=== PATIENT | female | born 1975 | race Caucasian/White ===

== ENCOUNTER 2016-06-14 12:54 | Emergency (ER) | payer OTHER ==
[2016-06-14 13:01] VITALS: BP 119/79; PULSE 67; TEMP 98.7; BMI 29.2
--- NOTE | 2016-06-14 13:30 | PDOC ---
History of Present Illness - General Chief Complaint: Headache Stated Complaint: DIZZINESS, SOB, HIGH BP Time Seen by Provider: 06/14/16 13:05 History Source: Patient - History of Present Illness Timing/Duration: other Associated Symptoms: reports: headaches, shortness of breath. denies: chest pain, cough, fever/chills, malaise, nausea/vomiting Past History - Past Medical History Allergies/Adverse Reactions: Allergies Allergy/AdvReac Type Severity Reaction Status Date / Time ciprofloxacin [From Cipro] Allergy Severe Hives Verified 06/14/16 13:01 ciprofloxacin HCl Allergy Severe Hives Verified 06/14/16 13:01 [From Cipro] coconut oil AdvReac Mild Itching Verified 06/14/16 13:01 kiwi AdvReac Mild Itching Verified 06/14/16 13:01 Home Medications: Ambulatory Orders Omeprazole [Prilosec (RX)] 20 mg PO DAILY 06/30/14 Albuterol Sulfate Inhaler - [Ventolin HFA Inhaler -] 1 - 2 inh PO Q4H #1 inhaler 11/22/15 Meclizine HCl 25 mg PO Q6H PRN #20 tablet 12/14/15 Asthma: No Cancer: No Cardiac Disorders: No Diabetes: No GI Disorders: Yes (GERD) HTN: Yes (PRECLAMPSIA) Suicide Attempt (Hx): No Seizures: No Thyroid Disease: No - Reproductive History (#): 5 Para: 2 Spontaneous : 2 - Immunization History Immunization Up to Date: Yes - Psycho/Social/Smoking Cessation Hx Anxiety: No Suicidal Ideation: No Smoking Status: No Smoking History: Current some day smoker Have you smoked in the past 12 months: No Number of Cigarettes Smoked Daily: 4 Information on smoking cessation initiated: No 'Breaking Loose' booklet given: 11/22/15 Hx Alcohol Use: No Drug/Substance Use Hx: No Substance Use Type: None Hx Substance Use Treatment: No Review of Systems - Review of Systems Constitutional: No: Fever HEENTM: No: Blurred Vision Respiratory: Yes: Shortness of Breath. No: Cough, Wheezing Cardiac (ROS): No: Chest Pain ABD/GI: No: Diarrhea, Nausea, Vomiting Neurological: Yes: Headache. No: Dizziness *Physical Exam - Vital Signs Last Vital Signs Temp Pulse Resp BP Pulse Ox 98.7 F 67 20 119/79 99 06/14/16 12:59 06/14/16 12:59 06/14/16 12:59 06/14/16 12:59 06/14/16 12:59 - Physical Exam Comments: 06/14/16 13:31 Pt well appearing, currently sitting in chair in room General Appearance: Yes: Appropriately Dressed. No: Apparent Distress HEENT: positive: Normal Voice Respiratory/Chest: positive: Lungs Clear, Normal Breath Sounds. negative: Respiratory Distress Cardiovascular: positive: Regular Rate, S1, S2 Gastrointestinal/Abdominal: positive: Soft. negative: Tender Integumentary: positive: Dry, Warm Neurologic: positive: Fully Oriented, Alert, Normal Mood/Affect, Motor Strength 08/25 ED Treatment Course - LABORATORY CBC & Chemistry Diagram: 06/14/16 13:50 06/14/16 13:18 - RADIOLOGY Radiology Studies Ordered: Category Date Time Status CHEST PA & LAT [RAD] Stat Radiology 06/14/16 13:18 Ordered Medical Decision Making - Medical Decision Making 06/14/16 13:24 41 yo F, h/o GERD, HTN in only, p/w a constellation of symptoms. Pt c/ o dizziness, LOW and sob x 3 days. States dizziness intermittent and has since resolved. No vertigo, visual changes or focal weakness. C/o vague frontal LOW that mostly comes and goes, achy, 3-4/10 and has since improved. States sometimes she feels sob but not currently. No CP, diaphoresis, n/v, palpitations , leg pain or swelling. Took her BP at home yesterday and states it was 140/90 and that she took "a water pill" she had at home. Pt states she saw PMD 1 month ago for well check and that labs were negative. No RFs for DVT/PE. On chart review, pt has been seen in ED in the past for numerous complaints including dizziness, usually discharged from ED. Pt well appearing on exam w/ stable vitals and unremarkable exam. Will check basic labs. Anticipate discharge w/ PMD f/u 06/14/16 14:55 Work up negative in ED. Pt remains well kayleigh and stable in ED. Will dc w/ PMD f/ u *DC/Admit/Observation/Transfer Diagnosis at time of Disposition: Dizziness Headache Qualifiers: Headache type: unspecified Headache chronicity pattern: episodic headache Intractability: not intractable Qualified Code(s): R51 - Headache - Discharge Dispostion Disposition: HOME Condition at time of disposition: Stable - Referrals Referrals: Josie Bazan MD [Primary Care Provider] - - Patient Instructions Additional Instructions: Your exam and labs were normal in ED. Please follow up with your PMD
[2016-06-14 13:56] LABS: BASOPHIL 0.6 % (0-2.0); EOSINOPHIL 0.9 % (0-4.5); MCH 29.9 pg (25.7-33.7); MCHC 33.3 g/dl (32.0-36.0); MEAN CELL VOLUME 89.8 fl (80-96); MEAN PLT VOLUME 8.8 fl (7.5-11.1); NEUTROPHILS 64.9 % (42.8-82.8); PLATELET COUNT 255 K/MM3 (134-434); RDW 13.3 % (11.6-15.6); WHITE BLOOD COUNT 7.4 K/mm3 (4.0-10.0)
[2016-06-14 13:59] LABS: URINE APPEARANCE CLEAR; URINE BILIRUBIN NEGATIVE (NEGATIVE); URINE COLOR COLORLESS; URINE GLUCOSE (UA) NEGATIVE (NEGATIVE); URINE KETONE NEGATIVE (NEGATIVE); URINE LEUK ESTERASE NEGATIVE (NEGATIVE); URINE NITRITE NEGATIVE (NEGATIVE); URINE PROTEIN NEGATIVE (NEGATIVE); URINE UROBILINOGEN NEGATIVE E.U./dl (0.2-1.0)
[2016-06-14 14:15] LABS: URINE BLOOD 3+ (NEGATIVE)
[2016-06-14 14:16] LABS: URINE MUCUS RARE; URINE RBC 4 /hpf (0-3); URINE WBC <1 /hpf (3-5)
[2016-06-14 14:34] LABS: ALBUMIN 4.2 g/dl (3.4-5.0); ANION GAP 7 (8-16); CALCIUM 9.3 mg/dL (8.5-10.1); CO2 30 mmol/L (21-32); CREATININE 0.7 mg/dL (0.55-1.02); GLUCOSE,RANDOM 80 mg/dL (74-106); SGOT/AST 15 U/L (15-37); SGPT/ALT 24 U/L (12-78)
[2016-06-14 14:36] LABS: ALK PHOS 76 U/L (45-117); BILIRUBIN,TOTAL 0.3 mg/dL (0.2-1.0); TOT PROT 7.3 g/dl (6.4-8.2)
== END 2016-06-14 14:59 | disposition home or self-care (01) ==
LOC: JERFT 12:54
DX: R51 Headache (principal); I15.8 Other secondary hypertension; K21.9 Gastro-esophageal reflux disease without esophagitis
CPT/HCPCS: 36415; 71020-TC; 80053; 81003; 81015; 84703; 85025; 99281-25

== ENCOUNTER 2017-05-01 20:37 | Emergency (ER) | payer OTHER ==
[2017-05-01] MEDS ORDERED: ASPIRIN 81 MG CHEWABLE TABLETS PO ONE (20:41)
[2017-05-01 20:44] VITALS: BP 144/99; PULSE 84; TEMP 98.5; BMI 26.7
--- NOTE | 2017-05-01 20:45 | PDOC ---
Rapid Medical Evaluation Chief Complaint: Chest Pain Time Seen by Provider: 05/01/17 20:39 Medical Evaluation: Allergies Allergy/AdvReac Type Severity Reaction Status Date / Time ciprofloxacin [From Cipro] Allergy Severe Hives Verified 06/14/16 13:01 ciprofloxacin HCl Allergy Severe Hives Verified 06/14/16 13:01 [From Cipro] coconut oil AdvReac Mild Itching Verified 06/14/16 13:01 kiwi AdvReac Mild Itching Verified 06/14/16 13:01 05/01/17 20:40 CC: c/o chest pain, dizziness and throat pain. currently on Augmentin for strep throat. PE: patient alert ox3. Plan: cbc, cmp, EKG, cardiac enzymes, chest xray, UA, urine patient to the ED for further management of care/ Discharge Disposition - Referrals Referrals: Josie Bazan MD [Primary Care Provider] - - Patient Instructions - Post Discharge Activity
[2017-05-01 21:21] LABS: BASO % 0.5 % (0-2.0); EOS % 1.6 % (0-4.5); HEMATOCRIT 37.4 % (32.4-45.2); HEMOGLOBIN 12.7 GM/dL (10.7-15.3); LYMPH % 34.6 % (8-40); MCH 30.4 pg (25.7-33.7); MEAN CELL VOLUME 89.3 fl (80-96); MEAN PLT VOLUME 8.8 fl (7.5-11.1); MONO % 6.7 % (3.8-10.2); NEUT % 56.6 % (42.8-82.8); PLATELET COUNT 236 K/MM3 (134-434); RBC 4.19 M/mm3 (3.60-5.2); RDW 12.8 % (11.6-15.6); WHITE BLOOD COUNT 6.4 K/mm3 (4.0-10.0)
[2017-05-01 21:22] LABS: HCG,QUALITATIVE URINE NEGATIVE
[2017-05-01 21:37] LABS: INR 1.04 (0.82-1.09); PROTHROMBIN TIME (PATIENT) 11.8 SEC (9.98-11.88)
[2017-05-01 21:46] LABS: ALBUMIN 3.9 g/dl (3.4-5.0); ANION GAP 7 (8-16); BILIRUBIN,TOTAL 0.3 mg/dL (0.2-1.0); BLOOD UREA NITROGEN 9 mg/dL (7-18); CALCIUM 8.3 mg/dL (8.5-10.1); CHLORIDE 108 mmol/L (98-107); CO2 26 mmol/L (21-32); CREATININE 0.6 mg/dL (0.55-1.02); GLUCOSE,RANDOM 115 mg/dL (74-106); POTASSIUM 3.6 mmol/L (3.5-5.1); SGOT/AST 13 U/L (15-37); SGPT/ALT 24 U/L (12-78); SODIUM 141 mmol/L (136-145)
[2017-05-01 21:49] LABS: ALK PHOS 69 U/L (45-117)
[2017-05-01 23:44] LABS: URINE APPEARANCE CLEAR; URINE BILIRUBIN NEGATIVE (NEGATIVE); URINE BLOOD 1+ (NEGATIVE); URINE COLOR COLORLESS; URINE GLUCOSE (UA) NEGATIVE (NEGATIVE); URINE KETONE NEGATIVE (NEGATIVE); URINE LEUK ESTERASE NEGATIVE (NEGATIVE); URINE NITRITE NEGATIVE (NEGATIVE); URINE PROTEIN NEGATIVE (NEGATIVE); URINE UROBILINOGEN NEGATIVE mg/dL (0.2-1.0)
[2017-05-01 23:46] LABS: EPI CELLS RARE /HPF (FEW); URINE BACTERIA RARE /hpf (NONE SEEN)
--- NOTE | 2017-05-02 00:43 | PDOC ---
History of Present Illness - General Chief Complaint: Chest Pain Stated Complaint: PAIN Time Seen by Provider: 05/01/17 20:39 History Source: Patient - History of Present Illness Initial Comments: 05/02/17 01:01 42 year old female c/o epigastric pain / chest pain since this afternoon. patient is currently on augmentin for Group A strep pharyngitis. patient is report throat pain, nausea and diarrhea. denies fever/ chills, cough, nasal congestion, vomiting, abdominal pain. denies OCP use, prolonged sitting, recent travel . PMHX: GERD 05/02/17 01:04 Past History - Past Medical History Allergies/Adverse Reactions: Allergies Allergy/AdvReac Type Severity Reaction Status Date / Time ciprofloxacin [From Cipro] Allergy Severe Hives Verified 05/02/17 00:57 ciprofloxacin HCl Allergy Severe Hives Verified 05/02/17 00:57 [From Cipro] coconut oil AdvReac Mild Itching Verified 05/02/17 00:57 kiwi AdvReac Mild Itching Verified 05/02/17 00:57 Home Medications: Ambulatory Orders Omeprazole [Prilosec (RX)] 20 mg PO DAILY 06/30/14 Mag Hydrox/Al Hydrox/Simeth [Mylanta Suspension -] 30 ml PO Q6H PRN #1 bottle Asthma: No Cancer: No Cardiac Disorders: No COPD: No Diabetes: No GI Disorders: Yes (GERD) HTN: Yes (PRECLAMPSIA) Seizures: No Thyroid Disease: No - Reproductive History (#): 5 Para: 2 Spontaneous : 2 - Immunization History Immunization Up to Date: Yes - Suicide/Smoking/Psychosocial Hx Smoking Status: No Smoking History: Current every day smoker Have you smoked in the past 12 months: Yes Number of Cigarettes Smoked Daily: 5 Information on smoking cessation initiated: No 'Breaking Loose' booklet given: 11/22/15 Hx Alcohol Use: No Drug/Substance Use Hx: No Substance Use Type: None Hx Substance Use Treatment: No Review of Systems - Review of Systems Able to Perform ROS?: Yes Is the patient limited Setswana proficient: No Constitutional: No: Symptoms Reported, See HPI, Chills, Diaphoresis, Fever, Loss of Appetite, Malaise, Night Sweats, Weakness, Weight Stable, Unintentional Wgt. Loss, Unexplained wgt Loss, Other HEENTM: Yes: Throat Pain Cardiac (ROS): Yes: Chest Pain. No: Symptoms Reported, See HPI, Edema, Irregular Heart Rate, Lightheadedness, Palpitations, Syncope, Chest Tightness, Other ABD/GI: Yes: Diarrhea, Nausea, Abdominal cramping (epigastric area). No: Symptoms Reported, See HPI, Abdominal Distended, Abd. Pain w/ defecation, Blood Streaked Bowels, Constipated, Difficulty Swallowing, Poor Appetite, Poor Fluid Intake, Rectal Bleeding, Vomiting, Indigestion, Tarry Stools, Other : No: Symptoms Reported, See HPI, Burning, Dysuria, Discharge, Frequency, Flank Pain, Hematuria, Incontinence, Pain, Urgency, Testicular Mass, Testicular Swelling, Lesions, Testicular Pain, Other Musculoskeletal: No: Symptoms Reported, See HPI, Back Pain, Gout, Joint Pain, Joint Swelling, Muscle Pain, Muscle Weakness, Neck Pain, Joint Stiffness, Other Integumentary: No: Symptoms Reported, See HPI, Bruising, Change in Color, Change in Hair/Nails, Dryness, Erythema, Flushing, Lesions, Lumps, Pallor, Pruritus, Rash, Sweating, Other *Physical Exam - Vital Signs Last Vital Signs Temp Pulse Resp BP Pulse Ox 98.5 F 84 18 144/99 98 05/01/17 20:41 05/01/17 20:41 05/01/17 20:41 05/01/17 20:41 05/01/17 20:41 - Physical Exam General Appearance: Yes: Appropriately Dressed Respiratory/Chest: positive: Lungs Clear, Normal Breath Sounds Heart Score/ECG Review - ECG Intrepretation Rhythm: Regular Rhythm Comment:: 05/02/17 01:08 NSR: 78bpm ED Treatment Course - LABORATORY CBC & Chemistry Diagram: 05/01/17 20:55 05/01/17 20:55 - ADDITIONAL ORDERS Additional order review: Laboratory Results 05/01/17 05/01/17 05/01/17 20:55 20:55 20:55 PT with INR 11.80 INR 1.04 Sodium 141 Potassium 3.6 D Chloride 108 H Carbon Dioxide 26 Anion Gap 7 L BUN 9 Creatinine 0.6 Creat Clearance w eGFR > 60 Random Glucose 115 H Calcium 8.3 L Magnesium 2.0 D Total Bilirubin 0.3 AST 13 L ALT 24 Alkaline Phosphatase 69 Creatine Kinase 83 Troponin I < 0.02 Total Protein 7.0 Albumin 3.9 Urine Color Colorless Urine Appearance Clear Urine pH 7.0 D Ur Specific [place] 1.002 Urine Protein Negative Urine Glucose (UA) Negative Urine Ketones Negative Urine Blood 1+ H Urine Nitrite Negative Urine Bilirubin Negative Urine Urobilinogen Negative Ur Leukocyte Esterase Negative Urine WBC (Auto) <1 Urine RBC (Auto) <1 Ur Epithelial Cells Rare Urine Bacteria Rare Urine HCG, Qual Negative 05/01/17 20:44 Group A Strep Rapid Antigen - Final Throat 05/01/17 20:55 RBC 4.19 MCV 89.3 MCHC 34.0 RDW 12.8 MPV 8.8 Neutrophils % 56.6 Lymphocytes % 34.6 D Monocytes % 6.7 Eosinophils % 1.6 Basophils % 0.5 - RADIOLOGY Radiology Studies Ordered: Category Date Time Status CHEST PA & LAT [RAD] Stat Radiology 05/02/17 00:08 Taken Progress Note - Progress Note Progress Note: A: Chest pain P; cbc cmp ekg cardiac chest xray rapid strep negative *DC/Admit/Observation/Transfer Diagnosis at time of Disposition: GERD (gastroesophageal reflux disease) Qualifiers: Esophagitis presence: without esophagitis Qualified Code(s): K21.9 - Gastro- esophageal reflux disease without esophagitis Chest pain Qualifiers: Chest pain type: other chest pain Qualified Code(s): R07.89 - Other chest pain ; R07.8 - Other chest pain - Prescriptions Prescriptions: Mag Hydrox/Al Hydrox/Simeth [Mylanta Suspension -] 30 ml PO Q6H PRN #1 bottle PRN Reason: Dyspepsia - Referrals Referrals: Josie Bazan MD [Primary Care Provider] - - Patient Instructions Printed Discharge Instructions: DI for Chest Pain Additional Instructions: continue Augmentin. take MAALox every 6 hours as needed for acid reflux. follow up with your doctor as soon as possible. return to the ED is symptoms worsened. - Post Discharge Activity
[2017-05-02] MEDS ORDERED: MAG HYDROX/AL HYDROX/SIMETH 30 ML UNIT-DOSE CUP PO ONE (01:00)
[2017-05-02] MEDS ORDERED: ACETAMINOPHEN 325 MG TABLET (FP) PO ONE (01:01)
[2017-05-02] MEDS ORDERED: ACETAMINOPHEN 325 MG TABLET (FP) ONE (01:06)
[2017-05-02] MEDS ORDERED: MAG HYDROX/AL HYDROX/SIMETH 30 ML UNIT-DOSE CUP ONE (01:06)
--- NOTE | 2017-05-02 09:20 | EKG ---
Test Reason : Blood Pressure : / mmHG Vent. Rate : 078 BPM Atrial Rate : 078 BPM P-R Int : 120 ms QRS Dur : 086 ms QT Int : 366 ms P-R-T Axes : 003 043 -08 degrees QTc Int : 417 ms NORMAL SINUS RHYTHM NONSPECIFIC T WAVE ABNORMALITY ABNORMAL ECG WHEN COMPARED WITH ECG OF 14-DEC-2015 15:37, NONSPECIFIC T WAVE ABNORMALITY NOW EVIDENT IN LATERAL LEADS Confirmed by BYRON PRETTY, IBETH ([id number]) on 05/02/2017 9:20:42 AM Referred By: Confirmed By:IBETH MATTHEWS MD
== END 2017-05-02 01:32 | disposition home or self-care (01) ==
LOC: JER 20:37
DX: R07.89 Other chest pain (principal); K21.9 Gastro-esophageal reflux disease without esophagitis
CPT/HCPCS: 36415; 71046-TC; 80053; 81003; 81015; 82550; 83735; 84484; 84703; 85025; 85610; 87070; 87430; 93005; 93010; 99282-25

== ENCOUNTER 2017-12-14 04:51 | Day surgery (SDC) | payer OTHER ==
[2017-12-13 10:25] VITALS: BMI 27.3
--- NOTE | 2017-12-14 07:42 | HP ---
History & Physical Update - Physical Physical: No Change - Assessment Assessment: No Change - Plan Plan: No Change
[2017-12-14] MEDS ORDERED: PROPOFOL 20 ML ONE (07:53)
[2017-12-14] MEDS ORDERED: MIDAZOLAM HCL 2 MG/2 ML SINGLE DOSE VIAL ONE (07:53)
[2017-12-14] MEDS ORDERED: DEXAMETHASONE SOD PHOSPHATE 4 MG/1 ML VIAL ONE (07:53)
[2017-12-14] MEDS ORDERED: fentaNYL CITRATE 250 MCG/5 ML VIAL ONE (07:53)
[2017-12-14] MEDS ORDERED: LIDOCAINE HCL/PF 2% SDV 5ML VIAL ONE (07:53)
[2017-12-14] MEDS ORDERED: ONDANSETRON 4 MG/2 ML VIAL IVPUSH PRN ×2 (07:54→08:11)
[2017-12-14] MEDS ORDERED: LACTATED RINGERS SOLUTION 1,000 ML IV SCH (08:00)
[2017-12-14] MEDS ORDERED: oxyCODONE HCL 5 MG TABLET PO PRN (08:11)
[2017-12-14] MEDS ORDERED: IBUPROFEN 600 MG TABLET (FP) PO PRN (08:11)
[2017-12-14] MEDS ORDERED: IBUPROFEN 800 MG/8 ML IJ IVPB PRN (08:11)
[2017-12-14] MEDS ORDERED: ELECTROLYTE-148 SOLN 1,000 ML IV SCH (08:15)
--- NOTE | 2017-12-14 08:24 | OP ---
DATE OF OPERATION: 12/14/2017 PREOPERATIVE DIAGNOSIS: Incomplete . POSTOPERATIVE DIAGNOSIS: Incomplete . PROCEDURE: Suction dilatation and curettage. SURGEON: Jersey Nevarez MD ANESTHESIA: General. ESTIMATED BLOOD LOSS: 50 mL. OPERATION: Patient was taken to the operating room. Under adequate general anesthesia in dorsal lithotomy position examination under anesthesia revealed external genitalia to be normal. Vagina with some blood in the vaginal vault. Cervix was open with moderate bleeding from the os. Uterus was anteverted, prominent and soft. Adnexa: No masses were palpable. Then with a weighted speculum in the vagina anterior lip of the cervix was grasped with single-tooth tenaculum and then uterine cavity was sounded to 9 cm. Cervix was dilated, did not require dilation. Then suction curet was inserted into the uterine cavity and the content was suctioned. Patient tolerated procedure well, left the OR in good condition. JERSEY NEVAREZ M.D. [id number]
[2017-12-14 08:27] VITALS: TEMP 98
[2017-12-14 14:07] VITALS: BP 129/82; PULSE 72
--- NOTE | 2017-12-18 09:46 | PATH ---
Surgical Pathology Report Patient Name: RAMO ESTEVES Med. Rec. #: [id number] /Age/Gender: 1975 (Age: 42) / F Account: [id number] Location: [facility] Taken: 12/14/2017 Received: 12/14/2017 Reported: 12/18/2017 Physicians: Jersey Nevarez M.D. Specimen(s) Received PRODUCTS OF CONCEPTION Clinical History Missed Final Diagnosis PRODUCTS OF CONCEPTION: FRAGMENTS OF SECRETORY TYPE ENDOMETRIUM AND DECIDUAL TISSUE. CERVICAL TISSUE WITH SQUAMOUS METAPLASIA. NO CHORIONIC VILLI PRESENT. Electronically Signed Daisy Saldana M.D. Gross Description Received in formalin labeled "products of conception," is a 3.5 x 3.2 x 0.3 cm aggregate of navarrete soft tissue fragments. No definite villous tissue or somatic tissue is identified. The formalin is filtered and the specimen is entirely submitted in 3 cassettes. __ DL/12/14/2017 saudi/12/14/2017
== END 2017-12-14 10:25 | disposition home or self-care (01) ==
LOC: JASU-SURG 04:51
PROVIDERS: ATTEND Obstetrics & Gynecology
PROC: 10D17ZZ Extraction of Products of Conception, Retained, Via Natural or Artificial Opening (ICD-10-PCS; principal; 2017-12-14 08:15)
DX: O03.4 Incomplete spontaneous abortion without complication (principal)
CPT/HCPCS: 88305-TC; 94760

== ENCOUNTER 2018-05-15 07:54 | Emergency (ER) | payer OTHER ==
[2018-05-15 08:02] VITALS: BP 146/99; PULSE 89; TEMP 98.5; BMI 27.3
--- NOTE | 2018-05-15 08:16 | PDOC ---
History of Present Illness - General Chief Complaint: Cold Symptoms Stated Complaint: COUGH Time Seen by Provider: 05/15/18 08:13 History Source: Patient Exam Limitations: No Limitations Past History - Past Medical History Allergies/Adverse Reactions: Allergies Allergy/AdvReac Type Severity Reaction Status Date / Time ciprofloxacin [From Cipro] Allergy Severe Hives Verified 05/15/18 08:16 ciprofloxacin HCl Allergy Severe Hives Verified 05/15/18 08:16 [From Cipro] coconut oil AdvReac Mild Itching Verified 05/15/18 08:16 kiwi AdvReac Mild Itching Verified 05/15/18 08:16 Home Medications: Ambulatory Orders Ibuprofen [Motrin -] 400 mg PO PRN 12/13/17 Asthma: No Cancer: No Cardiac Disorders: No COPD: No Diabetes: No GI Disorders: No (PHX GERD) HTN: No (PHX PRECLAMPSIA) Seizures: No Thyroid Disease: No - Reproductive History (#): 5 Para: 2 Spontaneous : 2 - Immunization History Immunization Up to Date: Yes - Suicide/Smoking/Psychosocial Hx Smoking Status: No Smoking History: Unknown if ever smoked Have you smoked in the past 12 months: No Number of Cigarettes Smoked Daily: 5 Information on smoking cessation initiated: No 'Breaking Loose' booklet given: 11/22/15 Hx Alcohol Use: No Drug/Substance Use Hx: No Substance Use Type: None Hx Substance Use Treatment: No *Physical Exam - Vital Signs Last Vital Signs Temp Pulse Resp BP Pulse Ox 98.5 F 89 18 146/99 99 05/15/18 07:59 05/15/18 07:59 05/15/18 07:59 05/15/18 07:59 05/15/18 07:59 - Physical Exam General Appearance: No: Apparent Distress HEENT: positive: Normal ENT Inspection Respiratory/Chest: positive: Lungs Clear, Normal Breath Sounds. negative: Respiratory Distress Cardiovascular: positive: Regular Rhythm, Regular Rate, S1, S2. negative: Murmur Gastrointestinal/Abdominal: positive: Normal Bowel Sounds, Soft. negative: Tender, Distended, Guarding, Rebound Integumentary: positive: Normal Color Neurologic: positive: Fully Oriented, Alert, Normal Mood/Affect Moderate Sedation - Procedure Monitoring Vital Signs: Procedure Monitoring Vital Signs Temperature 98.5 F 05/15/18 07:59 Pulse Rate 89 05/15/18 07:59 Respiratory Rate 18 05/15/18 07:59 Blood Pressure 146/99 05/15/18 07:59 O2 Sat by Pulse Oximetry (%) 99 05/15/18 07:59 Medical Decision Making - Medical Decision Making 43 y/o F hx of GERD, pre-eclampsia presents with wet cough, sore throat, rhinorrhea, nasal congestion, chest/back pain only with coughing x 5 days. Mentions having fever around 2 days ago. Has not taken any antipyretics today. Mentions everyone in her family is also sick with cold-like sxs. Denies sob, abd pain, n/v/d. PE unremarkable Likely viral syndrome, but patient insisting on getting CXR CXR negative Stable for d/c 05/15/18 08:16 *DC/Admit/Observation/Transfer Diagnosis at time of Disposition: Viral URI with cough - Discharge Dispostion Disposition: HOME Condition at time of disposition: Stable Decision to Admit order: No - Referrals Referrals: Michelle Betancourt MD [Primary Care Provider] - 3 days - Patient Instructions Printed Discharge Instructions: DI for Viral Upper Respiratory Infection -- Adult Additional Instructions: Thank you for choosing [facility]. It was a pleasure taking care of you. Your chest xray was negative Likely you have viral infection Take saline nasal spray and use Nedi-Pot to help with congestion Take Robitussin as needed for cough. Return to the Emergency Department if your symptoms worsen or persist or have other concerning symptoms. - Post Discharge Activity
== END 2018-05-15 08:51 | disposition home or self-care (01) ==
LOC: JERFT 07:54
DX: J06.9 Acute upper respiratory infection, unspecified (principal); B97.89 Other viral agents as the cause of diseases classified elsewhere; R05 Cough
CPT/HCPCS: 71046-TC-FY; 99281-25

== ENCOUNTER 2018-09-19 08:21 | Emergency (ER) | payer OTHER | END 2018-09-19 11:41 | LOC: JER 08:21 ==

== ENCOUNTER 2019-07-04 20:55 | Emergency (ER) | payer OTHER ==
[2019-07-04 21:06] VITALS: BP 158/113; PULSE 104; TEMP 99.2; BMI 27.3
--- NOTE | 2019-07-04 22:34 | PDOC ---
History of Present Illness - General Chief Complaint: Respiratory Stated Complaint: FEVER Time Seen by Provider: 07/04/19 21:59 History Source: Patient Exam Limitations: Clinical Condition - History of Present Illness Initial Comments: 07/04/19 22:31 Patient with history of hypertension on lisinopril 5 mg daily and positive smoking history present with complaint of body aches, nasal congestion, postnasal drip and cough. Patient reported has been having cough for 2 weeks which improved with home remedy but now since coming back again. Denies fever, chills, nausea, vomiting, dizziness, headache, chest pain, shortness of breath. Patient did not take anything for symptoms. Denies any other symptoms Is this a multiple visit Asthma Patient?: No Past History - Past Medical History Allergies/Adverse Reactions: Allergies Allergy/AdvReac Type Severity Reaction Status Date / Time ciprofloxacin [From Cipro] Allergy Severe Hives Verified 07/04/19 21:06 ciprofloxacin HCl Allergy Severe Hives Verified 07/04/19 21:06 [From Cipro] coconut oil AdvReac Mild Itching Verified 07/04/19 21:06 kiwi AdvReac Mild Itching Verified 07/04/19 21:06 Home Medications: Ambulatory Orders Amlodipine Besylate [Norvasc -] 10 mg PO DAILY 12/13/18 Benzonatate [Tessalon Pearls -] 100 mg PO Q8H PRN #16 capsule 07/04/19 Ipratropium Vincent 2 spray NS BID PRN 5 Days #1 spray 07/04/19 Methylprednisolone [Medrol Dose Gurinder] 4 mg PO ASDIR #21 tablet 07/04/19 Asthma: No Cancer: No Cardiac Disorders: No COPD: No Diabetes: No GI Disorders: No (PHX GERD) HTN: Yes (PHX PRECLAMPSIA) Seizures: No Thyroid Disease: No - Reproductive History (#): 5 Para: 2 Spontaneous : 2 - Immunization History Immunization Up to Date: Yes - Psycho Social/Smoking Cessation Hx Smoking Status: No Smoking History: Never smoked Have you smoked in the past 12 months: No Number of Cigarettes Smoked Daily: 4 'Breaking Loose' booklet given: 11/22/15 Hx Alcohol Use: Yes Drug/Substance Use Hx: No Substance Use Type: None Hx Substance Use Treatment: No Review of Systems - Review of Systems Able to Perform ROS?: Yes Is the patient limited Slovak proficient: No Constitutional: No: Chills, Fever, Malaise HEENTM: Yes: Symptoms Reported, See HPI, Nose Congestion. No: Eye Pain, Blurred Vision, Tearing, Recent change in vision, Double Vision, Cataracts, Ear Pain, Ocular Prothesis, Ear Discharge, Nose Pain, Tinnitus, Nose Bleeding, Hearing Loss, Throat Pain, Throat Swelling, Mouth Pain, Dental Problems, Difficulty Swallowing, Mouth Swelling, Other Respiratory: Yes: Symptoms reported, See HPI, Cough. No: Orthopnea, Shortness of Breath, SOB with Exertion, SOB at Rest, Stridor, Wheezing, Productive cough, Hemoptysis, Other Cardiac (ROS): No: Symptoms Reported, See HPI, Chest Pain, Edema, Irregular Heart Rate, Lightheadedness, Palpitations, Syncope, Chest Tightness, Other ABD/GI: No: Symptoms Reported, Abdominal Distended, Constipated, Diarrhea, Nausea, Vomiting, Abdominal cramping Neurological: No: Symptoms reported All Other Systems: Reviewed and Negative *Physical Exam - Vital Signs Last Vital Signs Temp Pulse Resp BP Pulse Ox 99.2 F 104 H 18 158/113 H 97 07/04/19 21:03 07/04/19 21:03 07/04/19 21:03 07/04/19 21:03 07/04/19 21:03 - Physical Exam 07/04/19 22:34 GENERAL: Well developed, well nourished. Awake and alert. No acute distress. HEENT: Normocephalic, atraumatic. PERRLA, EOMI. No conjunctival pallor. Sclera are non-icteric. Moist mucous membranes. Oropharynx is clear. NECK: Supple. Full ROM. CARDIOVASCULAR: Regular rate and rhythm. No murmurs, rubs, or gallops. Distal pulses are 2+ and symmetric. PULMONARY: No evidence of respiratory distress. Lungs clear to auscultation bilaterally. No wheezing, rales or rhonchi. ABDOMINAL: Soft. Non-tender. Non-distended. No rebound or guarding. No organomegaly. Normoactive bowel sounds. MUSCULOSKELETAL Normal range of motion at all joints. EXTREMITIES: No cyanosis. No clubbing. No edema. No calf tenderness. SKIN: Warm and dry. Normal capillary refill. No rashes. No jaundice. NEUROLOGICAL: Alert, awake, appropriate. Gait is normal without ataxia. PSYCHIATRIC: Cooperative. Good eye contact. Appropriate mood General Appearance: Yes: Nourished, Appropriately Dressed. No: Apparent Distress ED Treatment Course - RADIOLOGY Radiology Studies Ordered: Category Date Time Status CHEST PA & LAT [RAD] Stat Radiology 07/04/19 22:25 Ordered Medical Decision Making - Medical Decision Making 07/04/19 22:33 Patient with history of hypertension on lisinopril 5 mg daily and positive smoking history present with complaint of body aches, nasal congestion, postnasal drip and cough. Patient reported has been having cough for 2 weeks which improved with home remedy but now since coming back again. Denies fever, chills, nausea, vomiting, dizziness, headache, chest pain, shortness of breath. Patient did not take anything for symptoms. Denies any other symptoms Exam significant for mildly elevated blood pressure but patient report forgot to take her blood pressure medication today. Lungs clear to auscultation bilateral. Patient afebrile in no acute distress. Given patient persistent cough for 2 weeks, will do chest x-ray to rule out pneumonia. Patient advised to take blood pressure medication now as she has with her. Treat based on chest x-ray results 07/04/19 22:56 Chest x-ray shows no acute infiltrate or abnormality. Patient stable for discharge on outpatient management on Tessalon Perles. For cough and Medrol Gurinder for URI symptoms with advised to increase fluid intake and Atrovent nasal spray as needed for nasal congestion with PCP follow-up Discharge - Discharge Information Problems reviewed: Yes Clinical Impression/Diagnosis: Viral URI with cough, Nasal congestion Condition: Stable Disposition: HOME - Admission No - Additional Discharge Information Prescriptions: Ipratropium Vincent 2 spray NS BID PRN 5 Days #1 spray PRN Reason: nasal congestion Methylprednisolone [Medrol Dose Gurinder] 4 mg PO ASDIR #21 tablet Benzonatate [Tessalon Pearls -] 100 mg PO Q8H PRN #16 capsule PRN Reason: Cough - Follow up/Referral Referrals: Michelle Betancourt MD [Primary Care Provider] - - Patient Discharge Instructions Patient Printed Discharge Instructions: DI for Viral Upper Respiratory Infection -- Adult Additional Instructions: Your chest x-ray shows no pneumonia. His symptoms likely viral upper respiratory infection. Take prescribed medication as prescribed for symptoms. Increase fluid intake. Follow-up with your primary care - Post Discharge Activity
== END 2019-07-04 22:58 | disposition home or self-care (01) ==
LOC: JERFT 20:55
DX: J06.9 Acute upper respiratory infection, unspecified (principal); B97.89 Other viral agents as the cause of diseases classified elsewhere; I10 Essential (primary) hypertension; F17.210 Nicotine dependence, cigarettes, uncomplicated; Z87.19 Personal history of other diseases of the digestive system; Z88.1 Allergy status to other antibiotic agents; Z91.018 Allergy to other foods; Z91.048 Other nonmedicinal substance allergy status
CPT/HCPCS: 71046-TC-FY; 99283-25

== ENCOUNTER 2021-08-20 17:56 | Emergency (ER) | payer OTHER ==
[2021-08-20 18:17] VITALS: TEMP 97.9; BMI 32.8
[2021-08-20] MEDS ORDERED: SODIUM CHLORIDE 0.9% 500 ML INFUS.BAG IV ONE (19:20)
[2021-08-20 19:23] LABS: BASO % 0.7 % (0-2.0); EOS % 0.8 % (0-4.5); HEMATOCRIT 39.5 % (32.4-45.2); HEMOGLOBIN 13.5 GM/dL (10.7-15.3); LYMPH % 23.6 % (8-40); MCH 31.3 pg (25.7-33.7); MCHC 34.1 g/dl (32.0-36.0); MEAN CELL VOLUME 91.7 fl (80-96); MEAN PLT VOLUME 8.2 fl (7.5-11.1); MONO % 7.3 % (3.8-10.2); NEUT % 67.6 % (42.8-82.8); PLATELET COUNT 278 10^3/uL (134-434); RBC 4.31 M/mm3 (3.60-5.2); RDW 13.6 % (11.6-15.6); WHITE BLOOD COUNT 7.5 K/mm3 (4.0-10.0)
[2021-08-20 19:43] LABS: HCG,QUALITATIVE URINE Negative
[2021-08-20 19:44] LABS: EPI CELLS 20 /uL (0-25.1); HYALINE CASTS 0 /uL (0-3.1); PH,URINE 7.5 (5.0-8.0); URINE APPEARANCE CLEAR; URINE BACTERIA 145 /uL (0-1359); URINE BILIRUBIN NEGATIVE (NEGATIVE); URINE COLOR YELLOW; URINE GLUCOSE (UA) NEGATIVE (NEGATIVE); URINE KETONE NEGATIVE (NEGATIVE); URINE LEUK ESTERASE NEGATIVE (NEGATIVE); URINE NITRITE NEGATIVE (NEGATIVE); URINE PROTEIN NEGATIVE (NEGATIVE); URINE RBC 10 /uL (0-23.9); URINE UROBILINOGEN 0.2 mg/dL (0.2-1.0); URINE WBC 1 /uL (0-25.8)
[2021-08-20 19:47] LABS: CHLORIDE 100 mmol/L (98-107); SODIUM 138 mmol/L (136-145)
[2021-08-20 19:49] LABS: CALCIUM 9.4 mg/dL (8.5-10.1)
[2021-08-20 19:50] LABS: ALBUMIN 4.2 g/dl (3.4-5.0); ANION GAP 6 MMOL/L (8-16); BLOOD UREA NITROGEN 9.8 mg/dL (7-18); CO2 32 mmol/L (21-32); GLUCOSE,RANDOM 92 mg/dL (74-106)
[2021-08-20 19:52] LABS: SGPT/ALT 28 U/L (13-61)
[2021-08-20 19:53] LABS: CREATININE 0.6 mg/dL (0.55-1.3); SGOT/AST 33 U/L (15-37)
[2021-08-20 19:54] LABS: BILIRUBIN,TOTAL 0.3 mg/dL (0.2-1); TOT PROT 7.4 g/dl (6.4-8.2)
[2021-08-20 19:56] LABS: ALK PHOS 77 U/L (45-117)
[2021-08-20] MEDS ORDERED: hydrOXYzine PAMOATE 25 MG CAPSULE (FP) PO ONE ×2 (23:03→23:09)
[2021-08-20 23:17] VITALS: BP 120/76; PULSE 86
== END 2021-08-20 23:18 | disposition home or self-care (01) ==
LOC: JER 17:56
DX: R07.9 Chest pain, unspecified (principal); R20.2 Paresthesia of skin
CPT/HCPCS: 36415; 70450-TC; 71046-TC-FY; 80053; 81003; 84484; 84703; 85025; 87077; 87086; 93005; 93010; 99285-25

== ENCOUNTER 2022-03-19 09:05 | Inpatient (IN) | payer OTHER ==
[2022-03-19 09:42] VITALS: BMI 29.7
[2022-03-19 11:55] LABS: BASO % 0.6 % (0-2.0); EOS % 0.7 % (0-4.5); HEMATOCRIT 39.9 % (32.4-45.2); HEMOGLOBIN 13.4 GM/dL (10.7-15.3); LYMPH % 23.3 % (8-40); MCH 31.4 pg (25.7-33.7); MCHC 33.5 g/dl (32.0-36.0); MEAN CELL VOLUME 93.7 fl (80-96); MEAN PLT VOLUME 7.8 fl (7.5-11.1); MONO % 5.8 % (3.8-10.2); NEUT % 69.6 % (42.8-82.8); PLATELET COUNT 392 10^3/uL (134-434); RBC 4.26 M/mm3 (3.60-5.2); RDW 14.1 % (11.6-15.6); WHITE BLOOD COUNT 8.6 K/mm3 (4.0-10.0)
[2022-03-19 12:04] LABS: INR 1.06 (0.83-1.09); PROTHROMBIN TIME (PATIENT) 12.2 SEC (9.7-13.0)
[2022-03-19 12:13] LABS: EPI CELLS 17 /uL (0-25.1); HYALINE CASTS 0 /uL (0-3.1); URINE APPEARANCE CLEAR; URINE BACTERIA 408 /uL (0-1359); URINE BILIRUBIN NEGATIVE (NEGATIVE); URINE COLOR ORANGE; URINE GLUCOSE (UA) NEGATIVE (NEGATIVE); URINE KETONE NEGATIVE (NEGATIVE); URINE LEUK ESTERASE NEGATIVE (NEGATIVE); URINE NITRITE NEGATIVE (NEGATIVE); URINE PROTEIN TRACE (NEGATIVE); URINE RBC 21 /uL (0-23.9); URINE UROBILINOGEN 0.2 mg/dL (0.2-1.0); URINE WBC 5 /uL (0-25.8)
[2022-03-19 12:14] LABS: ALBUMIN 4.4 g/dl (3.4-5.0); BLOOD UREA NITROGEN 6.5 mg/dL (7-18); CALCIUM 9.4 mg/dL (8.5-10.1)
[2022-03-19 12:17] LABS: CREATININE 0.6 mg/dL (0.55-1.3)
[2022-03-19 12:19] LABS: BILIRUBIN,TOTAL 0.3 mg/dL (0.2-1); TOT PROT 8.1 g/dl (6.4-8.2)
[2022-03-19 15:10] LABS: BASO % 1.2 % (0-2.0); EOS % 1.6 % (0-4.5); HEMATOCRIT 38.2 % (32.4-45.2); HEMOGLOBIN 12.9 GM/dL (10.7-15.3); LYMPH % 29.9 % (8-40); MCH 31.5 pg (25.7-33.7); MCHC 33.7 g/dl (32.0-36.0); MEAN CELL VOLUME 93.7 fl (80-96); MEAN PLT VOLUME 7.6 fl (7.5-11.1); MONO % 6.6 % (3.8-10.2); NEUT % 60.7 % (42.8-82.8); PLATELET COUNT 333 10^3/uL (134-434); RBC 4.08 M/mm3 (3.60-5.2)
[2022-03-19] MEDS ORDERED: SODIUM CHLORIDE 0.9% 500 ML INFUS.BAG IV ONE (15:48)
[2022-03-19] MEDS ORDERED: ACETAMINOPHEN 1000 MG/100 ML BAG IVPB ONE (15:59)
[2022-03-19] MEDS ORDERED: ACETAMINOPHEN INJECTION 100 ML IVPB ONE (16:33)
[2022-03-19] MEDS ORDERED: ONDANSETRON 4 MG/2 ML VIAL IVPUSH PRN ×2 (18:16→18:20)
[2022-03-19] MEDS ORDERED: IBUPROFEN 800 MG/8 ML IJ IVPB PRN (18:20)
[2022-03-19] MEDS ORDERED: ELECTROLYTE-148 SOLN 1,000 ML IV SCH (18:30)
[2022-03-19] MEDS ORDERED: LACTATED RINGERS SOLUTION 1,000 ML IV SCH (18:30)
[2022-03-19] MEDS ORDERED: DEXAMETHASONE SOD PHOSPHATE 4 MG/1 ML VIAL ONE (18:48)
[2022-03-19] MEDS ORDERED: ONDANSETRON 4 MG/2 ML VIAL ONE (18:48)
[2022-03-19] MEDS ORDERED: KETOROLAC TROMETHAMINE 30 MG/1 ML VIAL ONE (18:48)
[2022-03-19] MEDS ORDERED: HYDROmorphone HCl 2 MG/ML VIAL ONE (18:58)
[2022-03-19] MEDS ORDERED: BUPIVACAINE HCL/PF 0.5% (5MG/ML) 10 ML VIAL IJ ONE ×2 (18:58→19:44)
[2022-03-19] MEDS ORDERED: FENTANYL CITRATE/PF 50 MCG/ML VIAL ONE ×3 (18:58→20:31)
[2022-03-19] MEDS ORDERED: MIDAZOLAM HCL 2 MG/2 ML SINGLE DOSE VIAL ONE ×2 (18:58→19:17)
[2022-03-19] MEDS ORDERED: BUPIVACAINE HCL/PF 0.5% (5MG/ML) 10 ML VIAL ONE (19:07)
[2022-03-19] MEDS ORDERED: ceFAZolin SODIUM 1 GM VIAL IVPB ONE (19:12)
[2022-03-19] MEDS ORDERED: CLINDAMYCIN 600 MG PREMIX BAG IVPB ONE (19:12)
[2022-03-19] MEDS ORDERED: CLINDAMYCIN 600MG PREMIX IVPB 1,200 MG/100 ML BAG IVPB ONE (19:14)
[2022-03-19] MEDS ORDERED: ceFAZolin SODIUM 1 GM VIAL ONE (19:14)
[2022-03-19] MEDS ORDERED: PROPOFOL 20 ML ONE (19:20)
[2022-03-19] MEDS ORDERED: BENZOIN/ALOE VERA/STORAX/TOLU 58 ML BOTTLE ONE (19:38)
[2022-03-20] MEDS: oxyCODONE HCL 5 MG TABLET PO PRN ×2 (02:42→06:26)
[2022-03-20] MEDS: IBUPROFEN 600 MG TABLET (FP) PO PRN ×2 (10:30→18:10)
[2022-03-20 13:15] LABS: BASO % 0.3 % (0-2.0); EOS % 0.1 % (0-4.5); HEMATOCRIT 32.5 % (32.4-45.2); HEMOGLOBIN 10.8 GM/dL (10.7-15.3); LYMPH % 17.2 % (8-40); MCH 31.7 pg (25.7-33.7); MCHC 33.1 g/dl (32.0-36.0); MEAN CELL VOLUME 95.7 fl (80-96); MEAN PLT VOLUME 7.9 fl (7.5-11.1); MONO % 6.4 % (3.8-10.2); PLATELET COUNT 300 10^3/uL (134-434); RDW 13.8 % (11.6-15.6); WHITE BLOOD COUNT 8.2 K/mm3 (4.0-10.0)
[2022-03-20 13:29] LABS: CALCIUM 8.6 mg/dL (8.5-10.1)
[2022-03-20 13:32] LABS: CREATININE 0.6 mg/dL (0.55-1.3)
[2022-03-20 13:34] LABS: BILIRUBIN,TOTAL 0.4 mg/dL (0.2-1); TOT PROT 6.2 g/dl (6.4-8.2)
[2022-03-20 13:45] LABS: ALBUMIN 3.4 g/dl (3.4-5.0)
[2022-03-20 15:19] VITALS: RESP 16; TEMP 98.7
[2022-03-20 18:04] VITALS: BP 111/76; PULSE 79
== END 2022-03-20 18:30 | disposition home or self-care (01) | DRG 545 ==
LOC: JER 09:05 → OBSVTOIN 15:56 → JERBED 15:56 → J3W 21:26
PROVIDERS: ADMIT Obstetrics & Gynecology; ATTEND Obstetrics & Gynecology
PROC: 0UT54ZZ Resection of Right Fallopian Tube, Percutaneous Endoscopic Approach (ICD-10-PCS; principal; 2022-03-19 18:15)
DX: O00.101 Right tubal pregnancy without intrauterine pregnancy (principal); K66.1 Hemoperitoneum; I10 Essential (primary) hypertension; G89.18 Other acute postprocedural pain; R00.0 Tachycardia, unspecified; R10.31 Right lower quadrant pain
CPT/HCPCS: 0241U-QW; 36415; 76817-TC; 80053; 81003; 84702; 85025; 85610; 86922; 87077; 87086; 88305-TC; 94760; 99285-25; G0378

== ENCOUNTER 2024-01-07 04:55 | Day surgery (SDC) | payer OTHER ==
[2024-01-01 17:50] VITALS: BMI 30.4
[2024-01-07] MEDS ORDERED: ONDANSETRON 4 MG/2 ML VIAL IVPUSH PRN (15:24)
[2024-01-07] MEDS ORDERED: LACTATED RINGERS SOLUTION 1,000 ML IV SCH (15:30)
[2024-01-07] MEDS ORDERED: ROCURONIUM BROMIDE 50 MG/5 ML SYRINGE ONE (15:51)
[2024-01-07] MEDS ORDERED: PROPOFOL 40 ML ONE (15:51)
[2024-01-07] MEDS ORDERED: MIDAZOLAM HCL 2 MG/2 ML SINGLE DOSE VIAL ONE (15:52)
[2024-01-07] MEDS ORDERED: LIDOCAINE HCL/PF 2% SDV 5ML VIAL ONE (15:52)
[2024-01-07] MEDS: ceFAZolin SODIUM 1 GM VIAL IVPB ONE (16:22)
[2024-01-07] MEDS ORDERED: DEXAMETHASONE SOD PHOSPHATE 4 MG/1 ML VIAL ONE (16:27)
[2024-01-07] MEDS ORDERED: ONDANSETRON 4 MG/2 ML VIAL ONE (16:27)
[2024-01-07] MEDS ORDERED: SUGAMMADEX SODIUM 200 MG/2 ML VIAL ONE (16:41)
[2024-01-07 19:48] VITALS: BP 136/87; PULSE 92; RESP 18; TEMP 97.5
[2024-01-08] MEDS ORDERED: HYDROCHLOROTHIAZIDE 25 MG TABLET (FP) PO SCH (10:00)
== END 2024-01-07 19:15 | disposition home or self-care (01) ==
LOC: JASU-SURG 04:55
PROVIDERS: ATTEND Obstetrics & Gynecology
PROC: 0UDB8ZX Extraction of Endometrium, Via Natural or Artificial Opening Endoscopic, Diagnostic (ICD-10-PCS; 2024-01-07)
PROC: 0UB98ZZ Excision of Uterus, Via Natural or Artificial Opening Endoscopic (ICD-10-PCS; principal; 2024-01-07 13:30)
DX: N84.0 Polyp of corpus uteri (principal); N92.0 Excessive and frequent menstruation with regular cycle
CPT/HCPCS: 81025; 88305-TC; 94760